=== PATIENT | male | born 1995 | race Caucasian/White ===

== ENCOUNTER 2020-10-31 12:33 | Emergency (ER) | payer BC, SELFPAY ==
[2020-10-31] VITALS (46 sets, daily range): BP systolic 87–110; BP diastolic 45–81; PULSE 85–128; RESP 9–23; TEMP 36.6; O2SAT 96–100
--- NOTE | 2020-10-31 12:45 | W.ED.GENAD ---
Discharge Plan Disposition Patient Disposition: HOME Condition: Improving Discharge Details Clinical Impression: Nausea, vomiting, and diarrhea Primary Care Provider: Unknown,Unknown ED Provider: Karina Carmichael Home Meds and New Rx's Prescriptions: No Action No Known Home Meds RF: 0 Discharge Instructions Instructions: Acute Nausea and Vomiting (ED), Acute Diarrhea (ED) Additional Instructions: Drink plenty of fluids and get plenty of rest. Alternate tylenol and motrin as needed and directed for pain. Take the Zofran as needed and directed for nausea and vomiting. Send a stool sample into the hospital as directed if your diarrhea continues for further evaluation to rule out a bacterial diarrheal illness. You will receive a call from care management regarding a follow-up appointment with a primary care doctor in the area for reevaluation within the next 1 to 2 weeks. Return immediately to the emergency department if you develop any worsening or new concerning symptoms such as fever, persistent vomiting, abdominal pain or any other concerns Stand Alone Forms: PENDING COVID-19 TESTING Discharge Data Discharge Physician: Karina Carmichael Medical Decision Making 25-year-old male with no significant past medical history presents with vomiting and diarrhea for the past 12 hours. Ate [employer] last night. Traveled here from [place]. No respiratory symptoms. Heart rate 115, blood pressure 96/65 on arrival. He is afebrile and appears nontoxic but slightly uncomfortable. Abdomen soft and nontender. Suspect most likely viral gastroenteritis but will check screening labs, give IV fluids, Zofran. Do not see indication for imaging at this time as he is afebrile and abdomen nontender. Labs reviewed. Anion gap 14, BUN 23, likely due to dehydration. Remainder of electrolytes within normal limits. Normal white blood cell count. Normal lipase. Patient reassessed and still complaining of some nausea. Will give Phenergan, Toradol and additional IV fluids and reassess. Patient reassessed and feels much better and is requesting to go home. Blood pressure improved with fluids and now slightly downtrending again, 98/48. Offered patient additional IV fluids and monitoring but he would prefer to go home at this time. He was able to provide a stool sample. Just prior to discharge, recheck temp 99.5 p.o. Patient denies any abdominal pain and is requesting to go home. Discussed with patient that he could develop a fever with viral gastroenteritis and to take the Zofran as needed and directed and then Tylenol and ibuprofen for pain or fever. He is declining a prescription for Zofran to the pharmacy. Patient placed on care management list to arrange for follow-up appointment with the primary care doctor for reevaluation. Advised to return here immediately if he develops a persistent fever, worsening vomiting, abdominal pain for reevaluation and consideration for imaging at that time. Medical Records Medical records reviewed: Yes I reviewed the patient's medical records. Lab Data Lab results reviewed: Yes I reviewed the patient's lab results. Labs: Laboratory Tests Range/Units 10/31/20 10/31/20 10/31/20 13:05 13:05 16:40 WBC (4.4-10.8) 10^3/uL 7.36 RBC (4.36-5.78) 10^6/uL 5.60 Hgb (13.5-17.5) g/dL 16.8 Hct (40.0-50.0) % 48.7 MCV (80-95) fL 87.0 MCH (27.0-33.0) pg 30.0 MCHC (32.0-36.0) % 34.5 RDW (11.8-14.1) % 11.9 Plt Count (130-400) 10^3/uL 224 MPV (8.0-11.0) fL 10.9 Immature Gran % 0.1 Neutrophils % 86.8 Lymphocytes % 2.3 Monocytes % 10.3 Eosinophils % 0.1 Basophils % 0.4 Nucleated RBC % % 0 Absolute Neutrophils (1.2-6.7) 10^3/uL 6.38 Absolute Lymphocytes (1.2-3.4) 10^3/uL 0.17 L Absolute Monocytes (0.1-0.8) 10^3/uL 0.76 Absolute Eosinophils (0.0-0.7) 10^3/uL 0.01 Absolute Basophils (0.0-0.2) 10^3/uL 0.03 Sodium (136-145) mmol/L 138 Potassium (3.5-5.1) mmol/L 3.8 Chloride (98-107) mmol/L 101 Carbon Dioxide (21.0-32.0) mmol/L 23.0 Anion Gap (3-11) mmol/L 14.0 H BUN (7-18) mg/dL 23 H Creatinine (0.70-1.30) mg/dL 1.3 Estimated GFR/1.73 m2 (mL/min/1.73m2) >= 60.00 Glucose (74-106) mg/dL 124 H Calcium (8.5-10.1) mg/dL 9.6 Total Bilirubin (0.2-1.0) mg/dL 1.0 AST (15-37) U/L 20 ALT (16-63) U/L 31 Alkaline Phosphatase (46-116) U/L 59 Total Protein (6.4-8.2) g/dL 9.0 H Albumin (3.4-5.0) g/dL 4.8 Lipase (73-393) U/L 62 Stl C.difficile Tox PCR (Negative) Negative HPI General Mode of arrival: ambulatory. Date/Time Provider Initiated Documentation: 10/31/20 12:36. Limitations to Documentation: no limitations. Information obtained by: patient. HPI Narrative: Patient is a 25-year-old male with no significant past medical history presents with vomiting and diarrhea since 12 AM. Patient traveled here from [place] yesterday and ate [employer] around 6:30 PM last night and then a bagel after that and went to bed and woke up at midnight and began vomiting and diarrhea. He states he has vomited and had diarrhea approximately 30 times each. He states the vomit initially with foods but now has been bile. He states the diarrhea is watery and brown. He denies any rectal bleeding. He states he has occasional crampy pain around the time of vomiting and diarrhea but otherwise denies any abdominal pain at this time. He denies any fever, recent travel, recent antibiotics or recent known sick contacts. He denies any known exposure to coronavirus. He denies any cough, shortness of breath, chest pain or urinary symptoms. Related Data Home Medications Medication Instructions Recorded Confirmed Unknown [No Known Home Meds] 10/31/20 10/31/20 Allergies Allergy/AdvReac Type Severity Reaction Status Date / Time No Known Allergies Allergy Unverified 10/31/20 13:11 General Stated Complaint: Nausea/Vomit/Diar SERGIO: 3 Review of Systems All systems reviewed & are unremarkable except as noted in HPI and below Constitutional Constitutional: Reports as per HPI, Denies chills and Denies fever(s) Eyes Eyes: Denies blurry vision ENT Ears, Nose, Mouth, and Throat: Denies dizziness, Denies sore throat and Denies throat swelling Cardiovascular Cardiovascular: Denies chest pain and Denies dyspnea Respiratory Respiratory: Denies cough and Denies dyspnea Gastrointestinal Gastrointestinal: Reports abdominal pain, Reports diarrhea and Reports vomiting Genitourinary Genitourinary: Denies hematuria and Denies dysuria Musculoskeletal Musculoskeletal: Denies back pain and Denies numbness Integumentary/Breasts Skin/Breast: Denies lesions and Denies rash Neurologic Neurologic: Denies dizziness, Denies localized weakness and Denies numbness Allergic/Immunologic Allergic/Immunologic: Denies throat swelling [facility] Medical History (Updated 10/31/20 @ 16:37 by Karina Carmichael DO) No significant past medical history Surgical History (Updated 10/31/20 @ 16:37 by Karina Carmichael DO) No significant past surgical history Social History Smoking/Tobacco Use Status: Never Smoking risk assessment performed?: Yes Alcohol Intake: current Alcohol Intake frequency: a few times a week Drug use: Never Substance use type: does not use Do you feel safe at home: Yes Do you feel safe in your relationship?: Yes Exam Const General: cooperative, healthy appearing and no acute distress HENMT Head: normal to inspection Face and sinus: normal facial exam Eyes General: appearance normal, both eyes and all related structures EOM: EOM intact bilaterally Neck Neck: normal visual inspection and No submandibular swelling Lymphatic: no lymphadenopathy noted Chest Chest: normal inspection of the chest and no tenderness Resp Effort & Inspection: normal respiratory effort and able to speak in complete sentences Auscultation: clear to auscultation bilaterally Cardio Rate: regular rate Rhythm: regular rhythm GI Inspection: normal to inspection Palpation: soft, not firm, not rigid and nontender Auscultation: normal bowel sounds Skin General skin exam: no rashes or lesions noted Neuro General: patient alert, patient awake and patient oriented x3 Cognition: normal cognition Speech: speech normal Motor: muscle tone normal throughout Sensory Exam: no sensory deficits noted Extrem General: normal to inspection, full ROM, capillary refill normal, no calf tenderness bilaterally and no edema Psych Appearance: grossly normal Mental Status: mental status grossly normal Speech and Movement: speech and movement normal Affect: normal affect Course Vital Signs Vital signs: Vital Signs Temperature 97.9 F 10/31/20 12:40 Pulse 115 H 10/31/20 12:40 Respiratory Rate 16 10/31/20 12:40 Blood Pressure 96/65 L 10/31/20 12:40 Pulse Oximetry 100 10/31/20 12:40 Temperature 97.9 F 10/31/20 12:40 Temperature Source Tympanic 10/31/20 12:40 Pulse 115 H 10/31/20 12:40 Respiratory Rate 16 10/31/20 12:40 Blood Pressure 96/65 L 10/31/20 12:40 Blood Pressure Position Sitting 10/31/20 12:40 Pulse Oximetry 100 10/31/20 12:40 Oxygen Delivery Method Room Air 10/31/20 12:40 Oxygen Flow Rate 0 10/31/20 12:40 Pain Level 7 10/31/20 12:40
[2020-10-31] MEDS: Normal Saline 1,000 ML 1000 ML IV ×2 (13:02→14:02)
[2020-10-31] MEDS: Ondansetron 4 MG/2 ML VIAL IVP (13:03)
[2020-10-31 13:18] LABS: Abs Immature Grans 0.01 10^3/uL (0.0-0.06); Absolute Basophil Count 0.03 10^3/uL (0.0-0.2); Absolute Eosinophil Count 0.01 10^3/uL (0.0-0.7); Absolute Lymphocyte Count 0.17 10^3/uL (1.2-3.4); Absolute Monocyte Count 0.76 10^3/uL (0.1-0.8); Absolute Neutrophil Count 6.38 10^3/uL (1.2-6.7); Basophils % 0.4; Eosinophils % 0.1; HCT 48.7 % (40.0-50.0); HGB 16.8 g/dL (13.5-17.5); Immature Grans % 0.1; Lymphocytes % 2.3; MCHC 34.5 % (32.0-36.0); MPV 10.9 fL (8.0-11.0); Monocytes % 10.3; Neutrophils % 86.8; Nucleated RBC 0 %; Platelet Count 224 10^3/uL (130-400); RDW 11.9 % (11.8-14.1); RDW-SD 38.2 fL; WBC 7.36 10^3/uL (4.4-10.8)
[2020-10-31 13:31] LABS: ALT 31 U/L (16-63); AST 20 U/L (15-37); Albumin 4.8 g/dL (3.4-5.0); Alkaline Phosphatase 59 U/L (46-116); BUN 23 mg/dL (7-18); CREATININE 1.3 mg/dL (0.70-1.30); Calcium 9.6 mg/dL (8.5-10.1); Chloride 101 mmol/L (98-107); Glucose 124 mg/dL (74-106); Lipase 62 U/L (73-393); Potassium 3.8 mmol/L (3.5-5.1); Sodium 138 mmol/L (136-145)
[2020-10-31] MEDS: Ketorolac 30 MG/ML VIAL IVP (14:03)
[2020-10-31] MEDS: Ondansetron O.D.T. 4 MG TABEF, 3 TABS/BTL PO (16:35)
--- NOTE | 2020-10-31 17:39 | NUR.NOTE ---
REFERRAL TO CARE MANAGEMENT. PATIENT IN AREA FOR AN EXTENDED PERIOD OF TIME AND NEEDS TO F/U W/PCP FOR VOMITING/DIARRHEA ?C-DIFF. Nursing Note:
[2020-10-31 17:48] LABS: C Diff PCR Negative (Negative)
[2020-11-02 11:15] LABS: Campylobacter PCR Negative (Negative); Salmonella PCR Negative (Negative); Shiga Toxin PCR Negative (Negative); Shigella/Enteroinvasive Ecoli Negative (Negative)
[2020-11-02 15:03] LABS: COVID-19 RT-PCR UVMMC Result Negative (Negative)
--- NOTE | 2020-11-02 16:26 | PDOC.ERCMPRO ---
- If Service Date Differs Date of service: 11/02/20 Time of Service: 16:28 Care Management Progress Note Charly is seen in the ED on 10/31/2020 for vomiting and diarrhea. contacts Charly ([phone]) by telephone to ask how he is doing and to inquire as to how much longer he will be in [place]. Charly reports he is feeling better and says he is returning home to [place] in just a few days. He will follow up with his PCP in [place], [place].
--- NOTE | 2020-11-11 07:28 | NUR.NOTE ---
Nursing Note: Left Message on phone to call er for test results on 11/02/20 and again on 11/11/20--Results mail to pt.ed
== END 2020-10-31 16:55 | disposition home or self-care (01) ==
PROVIDERS: Emergency Provider Physician Assistant
DX: R11.2 Nausea with vomiting, unspecified (principal); R19.7 Diarrhea, unspecified; E86.0 Dehydration; Z03.818 Encounter for observation for suspected exposure to other biological agents ruled out
CPT/HCPCS: 36415; 80053; 83690; 87493; 87505; 96361; 96365; 96375; 99284; U0003; 85025; 99283; J1885; J2405